=== PATIENT | male | born 1955 | race Caucasian/White ===

== ENCOUNTER 2023-11-16 14:13 | Outpatient (CLI) | payer MEDICARE, SELFPAY | END 2023-11-16 14:14 | disposition home or self-care (01) | LOC: ANHGOSHLAB 14:15 | PROVIDERS: PCP Internal Medicine; Visit Provider Internal Medicine | DX: Z12.5 Encounter for screening for malignant neoplasm of prostate (principal) | CPT/HCPCS: 36415; 84153; G0103 ==